=== PATIENT | female | born 1970 | race Caucasian/White ===

== ENCOUNTER 2022-04-10 18:29 | Emergency (ER) | payer MEDICAID ==
[~2022-04-10] VITALS: Ht 154.9 cm; Wt 41.7 kg
[~2022-04-10 18:29] MED LIST: ATI.5 PO; ESCI20TA49 PO; HYDR-4255 PO; LACO200T PO; PRO5 PO; SUCR1TAB56 PO; TOP100 PO
[2022-04-10 18:38] VITALS: BP 103/67
--- NOTE | 2022-04-10 19:25 | NUR ---
51 Y/O FEMALE, C/O GENERALIZED WEAKNESS SINCE THIS MORNING, STATING HER BP AT HOME WAS 77/32. BP IN TRIAGE 103/67, REPORTS SHE WAS D/C FROM ICU HERE ON SUNDAY FOR DEHYDRATION AND SEPSIS. REPORTS HX OF EPILEPSY, STATING SHE HAD ONE SEIZURE THIS MORNING. PMH: HTN, EPILEPSY, DEPRESSION, ANXIETY NKA
[2022-04-10] MEDS ORDERED: NACL 0.9% 1,000 ML IV ONE (20:05)
[2022-04-10] MEDS ORDERED: ACETAMINOPHEN EXTRA STRENGTH 500 MG TAB PO ONE (20:05)
--- NOTE | 2022-04-10 20:23 | NUR ---
CNC MILL SET UP OPERATOR AT BEDSIDE
[2022-04-10 20:38] LABS: BASOPHILS # (AUTO) 0.1 K/uL (0.00-0.22); BASOPHILS % (AUTO) 1.5 % (0.0-2.0); EOSINOPHILS # (AUTO) 0.2 K/uL (0-0.4); EOSINOPHILS % (AUTO) 3.7 % (0.0-4.0); HEMATOCRIT 30.3 % (36-48); HEMOGLOBIN 9.9 g/dL (12.0-16.0); LYMPHOCYTES # (AUTO) 2.8 K/uL (2.5-16.5); MEAN CORPUSCULAR HEMOGLOBIN 30 pg (27-31); MEAN CORPUSCULAR HGB CONC 33 g/dL (33-37); MEAN CORPUSCULAR VOLUME 89.8 fL (80-94); MONOCYTES # (AUTO) 0.3 K/uL (0.8-1.0); MONOCYTES % (AUTO) 5.5 % (1.7-9.3); NEUTROPHILS # (AUTO) 1.9 K/uL (1.8-7.7); NEUTROPHILS % (AUTO) 36.3 % (42.2-75.2); PLATELET COUNT (AUTO) 204 K/uL (140-450); RED BLOOD CELL COUNT(AUTO) 3.37 MIL/uL (4.20-5.40); RED CELL DISTRIBUTION WIDTH 13.4 % (11.6-13.7); WHITE BLOOD COUNT (AUTO) 5.3 K/uL (4.8-10.8)
[2022-04-10 21:10] LABS: ALBUMIN 3.9 g/dL (3.4-5.0); ANION GAP 14.5 (8-16); CARBON DIOXIDE 24.7 mmol/L (21-32); CREATININE 1.1 mg/dL (0.6-1.3); POTASSIUM 4.2 mmol/L (3.5-5.1); TOTAL BILIRUBIN 0.2 mg/dL (0.0-1.0)
[2022-04-10 23:09] VITALS: BP 107/66
--- NOTE | 2022-04-10 23:10 | NUR ---
Patient discharged with v/s stable. Written and verbal after care instructions given and explained. Patient verbalized understanding. Wheel Chair Assisted with to car. All questions addressed prior to discharge. Advised to follow up with PMD. vss, a/ox4, unlabored breathing, ambulatory, and calm demeanor.
== END 2022-04-10 23:10 | disposition home or self-care (01) ==
LOC: MED 18:29
DX: E86.0 Dehydration (principal); I95.9 Hypotension, unspecified; Z98.84 Bariatric surgery status
CPT/HCPCS: 36415; 80053; 83605; 85025; 96360; 99283; J7030

== ENCOUNTER 2022-04-12 17:43 | Inpatient (IN) | payer MEDICAID ==
[~2022-04-12] VITALS: Ht 154.9 cm; Wt 39.5 kg
--- NOTE | 2022-04-12 17:45 | NUR ---
LY ALS TO ER BED 6
[2022-04-12 17:47] VITALS: BP 107/62
--- NOTE | 2022-04-12 18:12 | NUR ---
S/W PATIENTS FRIEND RENA NAIK , STATED IF PATIENT D/C SHE WILL BE ABLE TO PROVIDE TRANSPORTATION HOME.
--- NOTE | 2022-04-12 18:23 | NUR ---
JOHN SWABED AND WALKED TO THE LAB.
[2022-04-12 18:40] LABS: BASOPHILS # (AUTO) 0.1 K/uL (0.00-0.22); EOSINOPHILS # (AUTO) 0.2 K/uL (0-0.4); EOSINOPHILS % (AUTO) 3.5 % (0.0-4.0); HEMATOCRIT 32.1 % (36-48); HEMOGLOBIN 10.4 g/dL (12.0-16.0); LYMPHOCYTES # (AUTO) 2.1 K/uL (2.5-16.5); LYMPHOCYTES % (AUTO) 46.8 % (20.5-51.1); MEAN CORPUSCULAR HEMOGLOBIN 29 pg (27-31); MEAN CORPUSCULAR HGB CONC 32 g/dL (33-37); MEAN CORPUSCULAR VOLUME 89.8 fL (80-94); MONOCYTES # (AUTO) 0.3 K/uL (0.8-1.0); MONOCYTES % (AUTO) 6.4 % (1.7-9.3); NEUTROPHILS # (AUTO) 1.9 K/uL (1.8-7.7); NEUTROPHILS % (AUTO) 41.3 % (42.2-75.2); PLATELET COUNT (AUTO) 240 K/uL (140-450); RED BLOOD CELL COUNT(AUTO) 3.57 MIL/uL (4.20-5.40); RED CELL DISTRIBUTION WIDTH 13.1 % (11.6-13.7); WHITE BLOOD COUNT (AUTO) 4.6 K/uL (4.8-10.8)
[2022-04-12 19:13] LABS: ALBUMIN 3.7 g/dL (3.4-5.0); ANION GAP 10.3 (8-16); CARBON DIOXIDE 22.3 mmol/L (21-32); CREATININE 0.9 mg/dL (0.6-1.3); MAGNESIUM 2.1 mg/dL (1.8-2.4); POTASSIUM 3.6 mmol/L (3.5-5.1); TOTAL BILIRUBIN 0.3 mg/dL (0.0-1.0)
--- NOTE | 2022-04-12 19:16 | NUR ---
URINE COLLECTED AND WALKED TO THE LAB.
--- NOTE | 2022-04-12 19:18 | NUR ---
GAVE REPORT TO MICHAEL FERRERA.
--- NOTE | 2022-04-12 19:30 | NUR ---
PATIENT RESTING IN BED. DOESNT APPEAR TO BE IN DISTRESS. RR APPEAR TO BE EVEN AND UNLABORED. ALL NEEDS MET.
--- NOTE | 2022-04-12 20:01 | NUR ---
Patient being evaluated by physician at bedside.
--- NOTE | 2022-04-12 20:30 | NUR ---
Patient being evaluated by physician at bedside.
--- NOTE | 2022-04-12 20:32 | NUR ---
SPOKE TO RENA TO GIVE UPDATE ON PATIENT STATUS.
[2022-04-12] MEDS ORDERED: NACL 0.9% 1,000 ML IV ONE (20:45)
[2022-04-12 20:54] LABS: BILIRUBIN,URINE NEGATIVE (NEGATIVE); BLOOD, URINE NEGATIVE (NEGATIVE); COLOR,URINE YELLOW (YELLOW); LEUKOCYTE ESTERASE ,URINE NEGATIVE (NEGATIVE); NITRITE, URINE NEGATIVE (NEGATIVE); UGLUCOSE NEGATIVE (NEGATIVE)
[2022-04-12 20:55] LABS: APPEARANCE,URINE CLEAR (CLEAR)
--- NOTE | 2022-04-12 22:00 | NUR ---
PATIENT AMBULATED TO THE AND BACK TO BED 6
[2022-04-12] MEDS ORDERED: POTASSIUM CHLORIDE 10 MEQ TABER PO PRN (22:10)
[2022-04-12] MEDS ORDERED: ONDANSETRON 4 MG/2 ML VIAL IM/IVP PRN (22:10)
[2022-04-12] MEDS ORDERED: HYDROcodone/APAP 5/325 MG 1 TAB TAB PO PRN (22:10)
[2022-04-12] MEDS ORDERED: MORPHINE SULFATE 2 MG/ML SYR IVP PRN (22:10)
[2022-04-12] MEDS ORDERED: MAGNESIUM OXIDE 400 MG TAB PO PRN (22:10)
[2022-04-12] MEDS ORDERED: DOCUSATE SODIUM 100 MG GELCAP PO PRN (22:10)
[2022-04-12] MEDS ORDERED: SODIUM PHOS / POTASSIUM PHOS 1 PKT PDR PO PRN (22:10)
[2022-04-12] MEDS: NACL 0.9% 1,000 ML IV SCH (22:33)
--- NOTE | 2022-04-12 23:00 | NUR ---
PT RQ FOOD AND BLANKETS
[2022-04-12 23:35] LABS: MAGNESIUM 1.9 mg/dL (1.8-2.4); PHOSPHORUS 2.9 mg/dL (2.5-4.9)
--- NOTE | 2022-04-13 00:31 | NUR ---
PATIENT RESTING IN BED WITH EYES CLOSED. BED LOW AND LOCKED. ISHMAEL SIDE RAILS UP FOR SAFETY. ALL NEEDS MET.
--- NOTE | 2022-04-13 01:05 | NUR ---
PATIENT AMBULATED TO THE RR
--- NOTE | 2022-04-13 01:06 | NUR ---
PATINET BM X1. AMBULATED BACK TO BED 6
--- NOTE | 2022-04-13 01:51 | NUR ---
PATIETN RQ MORE FOOD AND JUICE.
--- NOTE | 2022-04-13 04:14 | NUR ---
PATIENT RESTING IN BED WITH EYES CLOSED. DOESNT APPEAR TO BE IN DISTRESS. RR APPEAER TO BE EVEN AND UNLABORED. BED LOW AND LOCKED. ISHMAEL SIDE RAILS UP FOR SAFETY. ALL NEEDS MET.
--- NOTE | 2022-04-13 05:15 | NUR ---
PATIENT AMBULATED TO THE BEDSIDE COMODE. STEADY GAIT. ALL NEEDS MET
--- NOTE | 2022-04-13 06:35 | NUR ---
Esequiel norris in [facility] - 04/13/22 at 0708 by [facility] AT BEDSIDE
[2022-04-13 07:06] LABS: BASOPHILS # (AUTO) 0.1 K/uL (0.00-0.22); BASOPHILS % (AUTO) 1.8 % (0.0-2.0); EOSINOPHILS # (AUTO) 0.2 K/uL (0-0.4); EOSINOPHILS % (AUTO) 3.4 % (0.0-4.0); HEMATOCRIT 30.5 % (36-48); LYMPHOCYTES # (AUTO) 2.1 K/uL (2.5-16.5); LYMPHOCYTES % (AUTO) 44.8 % (20.5-51.1); MEAN CORPUSCULAR HEMOGLOBIN 30 pg (27-31); MEAN CORPUSCULAR HGB CONC 33 g/dL (33-37); MEAN CORPUSCULAR VOLUME 90.2 fL (80-94); MONOCYTES # (AUTO) 0.3 K/uL (0.8-1.0); MONOCYTES % (AUTO) 6.6 % (1.7-9.3); NEUTROPHILS # (AUTO) 2.1 K/uL (1.8-7.7); NEUTROPHILS % (AUTO) 43.4 % (42.2-75.2); PLATELET COUNT (AUTO) 197 K/uL (140-450); RED BLOOD CELL COUNT(AUTO) 3.38 MIL/uL (4.20-5.40); RED CELL DISTRIBUTION WIDTH 13.3 % (11.6-13.7); WHITE BLOOD COUNT (AUTO) 4.8 K/uL (4.8-10.8)
--- NOTE | 2022-04-13 07:21 | NUR ---
GAVE REPORT TO IBAN BARRETT. TRANSFER OF CARE
--- NOTE | 2022-04-13 07:21 | NUR ---
Report recieved from IBAN Jay at this time for transfer of care.
[2022-04-13] MEDS: MIDODRINE 5 MG TAB PO SCH ×3 (07:29→18:07)
[2022-04-13] MEDS ORDERED: HYDR25CA1 PO (07:35)
[2022-04-13] MEDS ORDERED: GABA300C PO (07:35)
--- NOTE | 2022-04-13 08:04 | NUR ---
Patient will be admitted to care of DR. MEJIA. Admited to TELEMETRY. Will go to room 126-B. Belongings list completed. Report to RONI JORDAN.
--- NOTE | 2022-04-13 08:10 | NUR ---
The patient's care was reviewed and supervised by Mel Delgado RN.
[2022-04-13 08:14] VITALS: BP 119/76
--- NOTE | 2022-04-13 08:15 | NUR ---
PT BROUGHT IN BY BAKARI FROM ED IN STABLE CONDITION. PT AMBULATED WITH ASSISTANCE TO BED. PT HAS A RIGHT AND LEFT AC 20 G, BOTH PATENT AND INTACT. IV FLUIDS RUNNING NS@75. VSS. SEIZURE PRECAUTIONS IMPLEMENTED. PT SKIN INTACT, LUNG SOUNDS CLEAR, S1S2, ON TELE MONITOR SHOWING SR, BOWEL SOUNDS HEARD, LAST BM REPORTED ON 04/12/22. EDUCATION PROVIDED ON HOSPITAL ENVIRONMENT. ALL QUESTIONS ANSWERED, ALL SAFETY MEASURES IN PLACE. CALL LIGHT WITHIN REACH. WILL CONTINUE TO MONITOR.
[2022-04-13] MEDS: SUCRALFATE 1 GM TAB PO SCH ×2 (08:44→15:56)
[2022-04-13] MEDS: ACETAMINOPHEN 325 MG TAB PO PRN (08:44)
[2022-04-13] MEDS: LACOSAMIDE 100 MG PO SCH ×2 (08:44→21:20)
[2022-04-13] MEDS: TOPIRAMATE 100 MG TAB PO SCH ×2 (08:45→21:22)
[2022-04-13] MEDS: PANTOPRAZOLE 40 MG TABEC PO SCH (08:45)
[2022-04-13] MEDS: ESCITALOPRAM 20 MG TAB PO SCH (08:45)
[2022-04-13 08:47] LABS: ANION GAP 11.9 (8-16); CARBON DIOXIDE 22.3 mmol/L (21-32); CREATININE 0.7 mg/dL (0.6-1.3); POTASSIUM 4.2 mmol/L (3.5-5.1)
[2022-04-13] MEDS ORDERED: LACOSAMIDE 100 MG PO SCH (09:00)
[2022-04-13] MEDS ORDERED: NON-FORMULARY ITEM (Lacosamide (Vimpat) 200 MG) PO SCH (09:00)
--- NOTE | 2022-04-13 09:04 | NUR ---
PATIENT HAS BEEN SCREENED AND CATEGORIZED HIGH NUTRITION RISK. PATIENT WILL BE SEEN WITHIN 1-2 DAYS OF ADMISSION. / [address]ON [address]
--- NOTE | 2022-04-13 10:00 | NUR ---
IRAM MEDICATION ADMINISTERED PER MD ORDER PT, TOLERATED ADMINISTRATION. ALL SAFETY MEASURES IN PLACE, CALL LIGHT WITHIN REACH. WILL CONTINUE TO MONITOR.
[2022-04-13] MEDS: NACL 0.9% 1,000 ML IV SCH (11:52)
[2022-04-13 12:00] VITALS: BP 104/63
--- NOTE | 2022-04-13 12:00 | NUR ---
IRAM MEDICATION ADMINISTERED PER MD ORDER, PT TOLERATED ADMINISTRATION.
[2022-04-13] MEDS: LORazepam 1 MG TAB PO PRN ×2 (12:51→22:36)
--- NOTE | 2022-04-13 14:00 | NUR ---
SON AT BEDSIDE, ALL QUESTIONS ANSWERED. PT STABLE IN BED WITH NO ACUTE S/S OF DISTRESS, ALL SAFETY MEASURES IN PLACE, CALL LIGHT WITHIN REACH. WILL CONTINUE TO MONITOR.
[2022-04-13] MEDS: DEXT 5% /NACL 0.9% 1,000 ML IV SCH ×2 (14:30→23:55)
[2022-04-13] MEDS: KETOROLAC 15 MG/ML VIAL IVP PRN (15:56)
[2022-04-13 16:00] VITALS: BP 115/57
--- NOTE | 2022-04-13 16:00 | NUR ---
DRUG SCREEN COLLECTED, LEFT AC REMOVED PER PT REQUEST, CATH IN PLACE. PT TOLERATED REMOVAL. NEW IV FLUIDS STARTED TO RIGHT AC 20G, PATENT AND INTACT. ALL SAFETY MEASURES IN PLACE, CALL LIGHT WITHIN REACH. WILL CONTINUE TO MONITOR.
--- NOTE | 2022-04-13 17:00 | NUR ---
IRAM MEDICATION ADMINISTERED PER MD ORDER, PT TOLERATED ADMINISTRATION. ALL SAFETY MEASURES IN PLACE, CALL LIGHT WITHIN REACH. WILL CONTINUE TO MONITOR.
--- NOTE | 2022-04-13 18:34 | NUR ---
PT REMAINED STABLE IN BED WITH ALL SAFETY MEASURES IN PLACE, CALL LIGHT WITHIN REACH. WILL ENDORSE TO HYDRAULIC PRESS IN OPERATOR NURSE.
--- NOTE | 2022-04-13 19:10 | NUR ---
RECEIVED REPORT FROM AM RONI JORDAN FOR CONTINUITY OF CARE. PT IS STABLE IN BED. A&OX4 DENIES PAIN. ON RM AIR/O2 WITH NOACUTE DISTRESS. RR EVEN AND UNLABORED WITH EQUAL CHEST RISE. GI INTACT. PT'S SKINIS INTACT. PT IS AMBULATORY AND CONTINENT. ALL SAFETY MEASURES IN PLACE . CALL LIGHT WITHIN REACH. WILL CONTINUE TO MONITOR.
[2022-04-13 20:00] VITALS: BP 128/69
[2022-04-13] MEDS: levETIRAcetam 500 MG TAB PO SCH (21:22)
--- NOTE | 2022-04-13 21:30 | NUR ---
HS MEDS GIVEN. AT 2230 PT C/O ANXIETY. ATIVAN 1 TABLET PO GIVEN. UP TO BATHROOM WITH STANDBY ASSIST. VOIDED. BACK TO BED. NAD. CALL LIGHT WITHIN REACH.
[2022-04-14] VITALS: BP 90/46
--- NOTE | 2022-04-14 | NUR ---
VSS: T-97.4, P-69, RR-18, BP-90/46 R ARM O2 SAT=98% ON ROOM AIR. AT 0145 PT C/O MESSER. RECEIVED TYLENOL 650MG PO WITH RELIEF AFTER 20 MINUTES. SLEEPING SOUNDLY RR EVEN AND UNLABORED. WILL CONTINUE WITH FREQ ROUNDS.
[2022-04-14] MEDS: ACETAMINOPHEN 325 MG TAB PO PRN (01:50)
[2022-04-14 04:00] VITALS: BP 80/54
[2022-04-14 05:58] LABS: BASOPHILS # (AUTO) 0.1 K/uL (0.00-0.22); BASOPHILS % (AUTO) 1.3 % (0.0-2.0); EOSINOPHILS # (AUTO) 0.3 K/uL (0-0.4); EOSINOPHILS % (AUTO) 4.3 % (0.0-4.0); HEMATOCRIT 30.6 % (36-48); HEMOGLOBIN 10.1 g/dL (12.0-16.0); LYMPHOCYTES # (AUTO) 3.2 K/uL (2.5-16.5); LYMPHOCYTES % (AUTO) 52.6 % (20.5-51.1); MEAN CORPUSCULAR HEMOGLOBIN 30 pg (27-31); MEAN CORPUSCULAR HGB CONC 33 g/dL (33-37); MONOCYTES # (AUTO) 0.4 K/uL (0.8-1.0); MONOCYTES % (AUTO) 6.9 % (1.7-9.3); NEUTROPHILS # (AUTO) 2.1 K/uL (1.8-7.7); NEUTROPHILS % (AUTO) 34.9 % (42.2-75.2); PLATELET COUNT (AUTO) 226 K/uL (140-450); RED CELL DISTRIBUTION WIDTH 13.2 % (11.6-13.7); WHITE BLOOD COUNT (AUTO) 6.1 K/uL (4.8-10.8)
[2022-04-14 06:14] LABS: ANION GAP 11.9 (8-16); CARBON DIOXIDE 24.2 mmol/L (21-32); CREATININE 0.9 mg/dL (0.6-1.3); POTASSIUM 4.1 mmol/L (3.5-5.1)
[2022-04-14] MEDS: SUCRALFATE 1 GM TAB PO SCH ×2 (06:26→17:44)
[2022-04-14] MEDS: MIDODRINE 5 MG TAB PO SCH ×3 (06:26→19:45)
--- NOTE | 2022-04-14 06:30 | NUR ---
AC BREAKFAST MEDS GIVEN. AMB WITH ASSIST TO BATHROOM VOIDED. GAIT SLIGHTLY UNSTEADY. DENIES PAIN, HEADACHE, OR DIZZINESS. CALL LIGHT WITHIN REACH. WILL CONTINUE TO MONITOR.
--- NOTE | 2022-04-14 07:30 | NUR ---
ENDORSED REPORT TO AM RONI WOODWARD. FOR CONTINUITY OF CARE. PT IS STABLE. ALL NEEDS MET THROUGHOUT THE SHIFT.
[2022-04-14 08:00] VITALS: BP 126/73
[2022-04-14] MEDS: PANTOPRAZOLE 40 MG TABEC PO SCH (08:46)
[2022-04-14] MEDS: levETIRAcetam 500 MG TAB PO SCH ×2 (08:46→20:46)
[2022-04-14] MEDS: TOPIRAMATE 100 MG TAB PO SCH ×2 (08:47→20:47)
[2022-04-14] MEDS: ESCITALOPRAM 20 MG TAB PO SCH (08:47)
[2022-04-14] MEDS: LACOSAMIDE 100 MG PO SCH ×2 (08:48→20:48)
[2022-04-14 08:49] LABS: BARBITURATE, URINE NEGATIVE ng/ml (NEG <=200); BENZODIAZEPINE, URINE POSITIVE ng/mL (NEG <=200); COCAINE, URINE NEGATIVE ng/mL (NEG <=300)
[2022-04-14 08:50] LABS: CANNABINOID, URINE NEGATIVE ng/mL (NEG <=50); OPIATE, URINE NEGATIVE ng/mL (NEG <=2000); PHENCYCLIDINE SCREEN,URINE NEGATIVE ng/mL (NEG <=25)
[2022-04-14] MEDS: DEXT 5% /NACL 0.9% 1,000 ML IV SCH ×2 (09:55→19:55)
--- NOTE | 2022-04-14 10:21 | NUR ---
PT STATED STILL FEELING ITCHY DESPITE GETTING BENADRYL AFTER TAKING THE MEDICATION MIDODRINE. NOTIFIED DR MEJIA, PER TO ORDER HYDROXYZINE 10MG PO ONCE. WILL CONTINUE WITH ORDERS.
[2022-04-14] MEDS ORDERED: HYDROXYZINE HYDROCHLORIDE 10 MG TAB PO SCH (10:30)
[2022-04-14 12:00] VITALS: BP 95/52
[2022-04-14] MEDS: LORazepam 1 MG TAB PO PRN (12:44)
--- NOTE | 2022-04-14 12:50 | NUR ---
PT STATED HAVING ANXIETY, MEDICATION ADMINISTERED, PT TOLERATED WELL, WILL CONTINUE TO MONITOR.
[2022-04-14] MEDS: PSYLLIUM 12.2 GM/PKT PO SCH (13:52)
--- NOTE | 2022-04-14 14:49 | NUR ---
04/14/22 RD INITIAL ASSESSMENT COMPLETED PLEASE REFER TO NUTRITION ASSESSMENT UNDER CARE ACTIVITY FOR ESTIMATED NUTRITIONAL NEEDS. 1. CONTINUE REGULAR DIET TOLERATED -RECOMMEND HIGH CALORIE/HIGH PROTEIN FOODS, NUTRITION EDUCATION HANDOUT PROVIDED 2. RECOMMEND ENSURE BID FOR NUTRITION SUPPORT 3. RD TO FOLLOW-UP 3-5 DAYS, MODERATE RISK CHON DANIEL RD
[2022-04-14 16:00] VITALS: BP 98/55
--- NOTE | 2022-04-14 19:30 | NUR ---
ENDORSED PT TO [facility]OC AADC OPERATIONS STAFF OFFICER NURSE FOR CONTINUOUS OF CARE
--- NOTE | 2022-04-14 19:31 | NUR ---
RECEIVED ENDORSEMENT FROM DAY SHIFT NURSE FOR CONTINUITY OF PT CARE. PT IS AWAKE, ALERT AND VERBALLY RESPONSIVE. PT IS FULL CODE, NOT KNOWN ALLERGY. RESPIRATION EVEN, NO SOB OR DISTRESS. SKIN COLOR IS NORMAL. SKIN INTACT AND PATENT. PT IS ON REGULAR DIET. IV SITE ON RIGHT FOREARM WITH 22G INTACT AND PATENT, IV FLUID NORMAL SALINE IS INFUSING WELL AT 100 ML/HR. NO REDNESS/RASHES OR SIGN/SYMPTOM OF INFECTION ON SKIN SURROUNDING IV SITE. PT DENIED OF PAIN/DISCOMFORT, HEADACHE OR DIZZINESS. PT HAS POOR APPETITE. SHE 15% THIS DINNER.
[2022-04-14 20:00] VITALS: BP 93/58
--- NOTE | 2022-04-14 21:15 | NUR ---
PT TAKES ALL HER EVENING MEDS WELL, NO ALLERGY OR SIDE REACTION.
--- NOTE | 2022-04-14 22:15 | NUR ---
PT IS SLEEPING, NO FACIAL GRIMACING.
[2022-04-15] VITALS: BP 91/46
--- NOTE | 2022-04-15 02:00 | NUR ---
PT ASLEEP, NO FACIAL GRIMACING.
[2022-04-15 04:00] VITALS: BP 99/45
[2022-04-15 06:28] LABS: BASOPHILS # (AUTO) 0.1 K/uL (0.00-0.22); BASOPHILS % (AUTO) 1.4 % (0.0-2.0); EOSINOPHILS # (AUTO) 0.3 K/uL (0-0.4); EOSINOPHILS % (AUTO) 4.4 % (0.0-4.0); HEMATOCRIT 30.3 % (36-48); LYMPHOCYTES # (AUTO) 2.9 K/uL (2.5-16.5); LYMPHOCYTES % (AUTO) 50.2 % (20.5-51.1); MEAN CORPUSCULAR HEMOGLOBIN 29 pg (27-31); MEAN CORPUSCULAR HGB CONC 33 g/dL (33-37); MEAN CORPUSCULAR VOLUME 88.9 fL (80-94); MONOCYTES # (AUTO) 0.4 K/uL (0.8-1.0); MONOCYTES % (AUTO) 6.3 % (1.7-9.3); NEUTROPHILS # (AUTO) 2.2 K/uL (1.8-7.7); NEUTROPHILS % (AUTO) 37.7 % (42.2-75.2); PLATELET COUNT (AUTO) 249 K/uL (140-450); RED CELL DISTRIBUTION WIDTH 13.4 % (11.6-13.7); WHITE BLOOD COUNT (AUTO) 5.8 K/uL (4.8-10.8)
[2022-04-15] MEDS: DEXT 5% /NACL 0.9% 1,000 ML IV SCH ×2 (06:29→16:10)
[2022-04-15 06:54] LABS: ANION GAP 11.3 (8-16); CARBON DIOXIDE 24.8 mmol/L (21-32); CREATININE 0.7 mg/dL (0.6-1.3); POTASSIUM 4.1 mmol/L (3.5-5.1)
--- NOTE | 2022-04-15 07:25 | NUR ---
ENDORSED TO DAY SHIFT NURSE FOR CONTINUITY OF PT CARE. PT IS ON STABLE CONDITION.
--- NOTE | 2022-04-15 07:30 | NUR ---
RECEIVED BEDSIDE REPORT FROM SENIOR RADIATION THERAPIST NURSE FOR CONTINUOUS OF CARE, PT AWAKE ALERT ABLE TO LET NEEDS KNOWN, IV TO RIGHT AC 22G PATENT INTACT INFUSING WELL. PT ON ROOM AIR, NO SOB NOTED, INITIAL ASSESSMENT DONE, ALL SAFETY PRECAUTION MET, CALL LIGHT WITHIN REACH, WILL CONTINUE TO MONITOR.
[2022-04-15] MEDS: MIDODRINE 5 MG TAB PO SCH ×3 (07:45→21:34)
[2022-04-15] MEDS: SUCRALFATE 1 GM TAB PO SCH ×2 (07:46→16:36)
[2022-04-15 08:00] VITALS: BP 128/71
[2022-04-15] MEDS: PANTOPRAZOLE 40 MG TABEC PO SCH (09:22)
[2022-04-15] MEDS: ESCITALOPRAM 20 MG TAB PO SCH (09:22)
[2022-04-15] MEDS: levETIRAcetam 500 MG TAB PO SCH ×2 (09:23→21:33)
[2022-04-15] MEDS: TOPIRAMATE 100 MG TAB PO SCH ×2 (09:23→21:34)
[2022-04-15] MEDS: FLUDROCORTISONE 0.1 MG TAB PO SCH (09:23)
[2022-04-15] MEDS: PSYLLIUM 12.2 GM/PKT PO SCH (09:24)
[2022-04-15] MEDS: LACOSAMIDE 100 MG PO SCH ×2 (09:26→21:36)
[2022-04-15 12:00] VITALS: BP 99/63
[2022-04-15] MEDS: KETOROLAC 15 MG/ML VIAL IVP PRN ×2 (13:26→21:37)
[2022-04-15] MEDS: LORazepam 1 MG TAB PO PRN ×2 (13:59→23:37)
[2022-04-15 16:00] VITALS: BP 116/69
--- NOTE | 2022-04-15 19:30 | NUR ---
ENDORSED PT TO [employer] PERSON NURSE FOR CONTINUOUS OF CARE.
--- NOTE | 2022-04-15 19:31 | NUR ---
RECEIVED ENDORSEMENT FROM DAY SHIFT NURSETRACE FOR CONTINUITY OF PT CARE. PT IS STABLE, AWAKE, ALERT AND VERBALLY RESPONSIVE. PT IS FULL CODE, NOT KNOWN ALLERGY. RESPIRATION EVEN, NO SOB OR DISTRESS. SKIN COLOR IS NORMAL. SKIN INTACT AND PATENT. PT IS ON REGULAR DIET, SHE CONSUMED 80% OF FOOD PREPARED AND ASKED FOR ADDITIONAL SANDWICH AND CHOCOLATE PUDDING. IV SITE ON RIGHT FOREARM WITH 22G INTACT AND PATENT, IV FLUID NORMAL SALINE IS INFUSING WELL AT 100 ML/HR. NO REDNESS/RASHES OR SIGN/SYMPTOM OF INFECTION ON SKIN SURROUNDING IV SITE. PT DENIED OF PAIN/DISCOMFORT, HEADACHE OR DIZZINESS. PT AMBULATES TO RESTROOM INDEPENDENTLY.
[2022-04-15 20:00] VITALS: BP 90/50
--- NOTE | 2022-04-15 21:37 | NUR ---
PT COMPLAINTS OF HEADACHE, HEADACHE MEDICATION TORADOL ADMINISTERED ORDERED.
--- NOTE | 2022-04-15 22:37 | NUR ---
REASSESSMENT OF HEADACHE, PT VERBALIZED OF TORADOL IS EFFECTIVE, HEADACHE REDUCED TO 2/10. PT FEELS COMFORTABLE.
[2022-04-16] VITALS: BP 129/73
--- NOTE | 2022-04-16 00:15 | NUR ---
PT IS ASLEEP, NO FACIAL GRIMACING.
--- NOTE | 2022-04-16 02:00 | NUR ---
PT ON BED SLEEPING WELL. NO DISCOMFORT, NO FACIAL GRIMACING. IV FLUID IS INFUSING WELL.
[2022-04-16] MEDS: DEXT 5% /NACL 0.9% 1,000 ML IV SCH ×2 (02:02→11:57)
[2022-04-16 04:00] VITALS: BP 102/63
--- NOTE | 2022-04-16 04:00 | NUR ---
PT AWAKEN FOR VITAL SIGNS CHECK. PT DENIED OF ANY APIN OR DISCOMFORT. NO HEADACHE OR DIZZINESS.
[2022-04-16] MEDS: MIDODRINE 5 MG TAB PO SCH ×3 (05:00→21:39)
[2022-04-16 05:49] LABS: BASOPHILS # (AUTO) 0.1 K/uL (0.00-0.22); BASOPHILS % (AUTO) 1.3 % (0.0-2.0); EOSINOPHILS # (AUTO) 0.2 K/uL (0-0.4); EOSINOPHILS % (AUTO) 3.9 % (0.0-4.0); HEMATOCRIT 28.1 % (36-48); HEMOGLOBIN 9.2 g/dL (12.0-16.0); LYMPHOCYTES # (AUTO) 3.3 K/uL (2.5-16.5); LYMPHOCYTES % (AUTO) 52.9 % (20.5-51.1); MEAN CORPUSCULAR HEMOGLOBIN 29 pg (27-31); MEAN CORPUSCULAR HGB CONC 33 g/dL (33-37); MEAN CORPUSCULAR VOLUME 89.3 fL (80-94); MONOCYTES # (AUTO) 0.4 K/uL (0.8-1.0); MONOCYTES % (AUTO) 6.4 % (1.7-9.3); NEUTROPHILS # (AUTO) 2.2 K/uL (1.8-7.7); NEUTROPHILS % (AUTO) 35.5 % (42.2-75.2); PLATELET COUNT (AUTO) 228 K/uL (140-450); RED BLOOD CELL COUNT(AUTO) 3.15 MIL/uL (4.20-5.40); RED CELL DISTRIBUTION WIDTH 13.1 % (11.6-13.7); WHITE BLOOD COUNT (AUTO) 6.2 K/uL (4.8-10.8)
[2022-04-16] MEDS: SUCRALFATE 1 GM TAB PO SCH ×2 (06:37→15:45)
--- NOTE | 2022-04-16 07:25 | NUR ---
ENDORSED PATIENT TO DAY SHIFT NURSE FOR CONTINUITY OF PT CARE. PT IS ON STABLE CONDITION.
--- NOTE | 2022-04-16 07:30 | NUR ---
RECEIVED REPORT FROM PRINTER SLOTTER FEEDER NURSE. NO S/S OF DISTRESS. CALL LIGHT IN REACH ALL SAFETY MEASURES IN PLACE.
[2022-04-16 07:32] LABS: ANION GAP 9.8 (8-16); CARBON DIOXIDE 25.9 mmol/L (21-32); CREATININE 0.9 mg/dL (0.6-1.3); POTASSIUM 3.7 mmol/L (3.5-5.1)
[2022-04-16 08:00] VITALS: BP 137/78
[2022-04-16] MEDS: ESCITALOPRAM 20 MG TAB PO SCH (09:08)
[2022-04-16] MEDS: TOPIRAMATE 100 MG TAB PO SCH ×2 (09:08→21:40)
[2022-04-16] MEDS: PSYLLIUM 12.2 GM/PKT PO SCH (09:08)
[2022-04-16] MEDS: levETIRAcetam 500 MG TAB PO SCH ×2 (09:08→21:39)
[2022-04-16] MEDS: PANTOPRAZOLE 40 MG TABEC PO SCH (09:08)
[2022-04-16] MEDS: FLUDROCORTISONE 0.1 MG TAB PO SCH (09:08)
[2022-04-16] MEDS: SENNA 8.6 MG TAB PO SCH (09:08)
--- NOTE | 2022-04-16 09:10 | NUR ---
SPOKE TO PHARMACY TO OBTAIN PT MEDICATION. PHARMACY TO BRING OR ADVISE NURSE OF LOCATION ONCE ACQUIRED.
[2022-04-16] MEDS: LACOSAMIDE 100 MG PO SCH ×2 (09:30→21:42)
--- NOTE | 2022-04-16 11:48 | NUR ---
PT STATED ITCHING REACTION WHEN MIDODRINE IS ADMINISTERED AND HAS BEEN RECEIVING BENADRYL WITH MEDICATION. BENADRYL ADMINISTERED PRIOR TO MIDODRINE ADMINISTRATION INCREASE EFFECTIVENESS OF MEDICATION. WILL CONTINUE TO MONITOR FOR REACTIONS. CALL LIGHT IN REACH. ALL SAFETY MEASURES IN PLACE
[2022-04-16 12:00] VITALS: BP 104/63
--- NOTE | 2022-04-16 12:37 | NUR ---
PT STATED "IM FEELING ANXIOUS" AND REQUESTED ATIVAN FOR HER ANXIETY. WILL ADMINISTER AND CONTINUE TO MONITOR PT.
--- NOTE | 2022-04-16 13:07 | NUR ---
AFTER ADMINISTERING MIDODRINE. PT WAS ASKED ABOUT PREVIOUS SEIZURE HISTORY. WHILE DISCUSSING PT'S LAST SEIZURE PT STOPPED SPEAKING AND SEIZURE ACTIVITY BEGAN AT 1244. SEIZURE ENDED APPROXIMATELY 45 SECONDS AFTER. PT WAS PLACE ON 02 MASK AT 6L. PT WAS ABLE TO RESPOND WITH NODS AT 1246, AND NAME AT 1247. NOTIFIED DR. MEJIA, DR. GATES, AND DR. TEIXEIRA. DR. MEJIA ORDERED KEPPRA TO BE INCREASED TO 1500 BID AND EEG. PT IS STABLE. VITALS WNL. WILL CONTINUE TO MONITOR
--- NOTE | 2022-04-16 13:59 | NUR ---
PT SITTING UP AND EATING LUNCH. DISCUSSED SEIZURE ACTIVITY. PT A&OX4, NO SLURRED SPEECH. PERRLA. NO S/S OF DISTRESS. INFORMED PT OF NEW ORDERS AND POC
[2022-04-16] MEDS: DEXT 5% / NACL 0.45% 1,000 ML IV SCH (15:45)
[2022-04-16 16:00] VITALS: BP 101/56
--- NOTE | 2022-04-16 17:30 | NUR ---
INFORMED PT THAT PHYSICAL THERAPY ORDER WAS OBTAINED AND EVAL WILL NOT TAKE PLACE UNTIL TOMORROW. PER MD, PT MUST BE 24HRS SEIZURE FREE TO DC. PT VERBALIZED UNDERSTANDING
--- NOTE | 2022-04-16 19:04 | NUR ---
ENDORSED PT TO VP CORPORATE DEVELOPMENT NURSE. NO S/S OF DISTRESS. CALL LIGHT IN REACH. ALL SAFETY MEASURES IN PLACE
--- NOTE | 2022-04-16 19:05 | NUR ---
RECEIVED ENDORSEMENT FROM DAY SHIFT NURSE. PT IS ON BED, AWAKE, ALERT AND VERBALIZED NEEDS. IV FLUID IS INFUSING WELL AT 100 ML/HR. PT STATED SHE SHOULD BE HOME ALREADY IF SHE DOES NOT HAVE SEIZURE TODAY. PT STATED AND UNDERSTOOD THAT IF SHE DOES NOT HAVE SEIZURE FOR THE NEXT 24 HRS, SHE COULD BE HOME. CONTINUE TO MONITOR.
[2022-04-16 20:00] VITALS: BP 95/54
--- NOTE | 2022-04-16 23:10 | NUR ---
ASSISTED PT AFTER USING RESTROOM TO AMBULATES TO HER BED, PT IS WITH MODERATE SLIGHT SHORT OF BREATH, WHEN MOVES TO QUICK. PT DENIES OF HEADACHE, PAIN OR DISCOMFORT. IV FLUID IS INFUSING WELL.
[2022-04-16] MEDS: LORazepam 1 MG TAB PO PRN (23:16)
[2022-04-17] VITALS: BP 95/54
[2022-04-17] MEDS: DEXT 5% / NACL 0.45% 1,000 ML IV SCH ×2 (01:34→11:25)
--- NOTE | 2022-04-17 02:00 | NUR ---
PT IS ASLEEP, NO SOB OR DISTRESS.
[2022-04-17 04:00] VITALS: BP 93/54
[2022-04-17] MEDS: MIDODRINE 5 MG TAB PO SCH ×2 (05:55→12:05)
[2022-04-17 06:02] LABS: BASOPHILS # (AUTO) 0.1 K/uL (0.00-0.22); BASOPHILS % (AUTO) 1.7 % (0.0-2.0); EOSINOPHILS # (AUTO) 0.2 K/uL (0-0.4); EOSINOPHILS % (AUTO) 3.3 % (0.0-4.0); HEMATOCRIT 27.7 % (36-48); HEMOGLOBIN 9.1 g/dL (12.0-16.0); LYMPHOCYTES # (AUTO) 2.9 K/uL (2.5-16.5); LYMPHOCYTES % (AUTO) 46.1 % (20.5-51.1); MEAN CORPUSCULAR HEMOGLOBIN 29 pg (27-31); MEAN CORPUSCULAR HGB CONC 33 g/dL (33-37); MONOCYTES # (AUTO) 0.4 K/uL (0.8-1.0); MONOCYTES % (AUTO) 5.7 % (1.7-9.3); NEUTROPHILS # (AUTO) 2.7 K/uL (1.8-7.7); NEUTROPHILS % (AUTO) 43.2 % (42.2-75.2); PLATELET COUNT (AUTO) 223 K/uL (140-450); RED BLOOD CELL COUNT(AUTO) 3.11 MIL/uL (4.20-5.40); RED CELL DISTRIBUTION WIDTH 13.4 % (11.6-13.7); WHITE BLOOD COUNT (AUTO) 6.2 K/uL (4.8-10.8)
[2022-04-17 06:17] LABS: ANION GAP 9.5 (8-16); CARBON DIOXIDE 26.1 mmol/L (21-32); CREATININE 0.8 mg/dL (0.6-1.3); POTASSIUM 3.6 mmol/L (3.5-5.1)
[2022-04-17] MEDS: SUCRALFATE 1 GM TAB PO SCH (07:08)
--- NOTE | 2022-04-17 07:16 | NUR ---
NO SEIZURE OCCURRENCE THIS SHIFT. PT IS ON STABLE CONDITION, DENIES OF PAIN OR DISCOMFORT, NO HEADACHE OR DIZZINESS. ENDORSED TO DAY SHIFT NURSE FOR CONTINUITY OF PT CARE.
[2022-04-17 08:00] VITALS: BP 120/76
--- NOTE | 2022-04-17 08:00 | NUR ---
RECEIVED REPORT FROM CALCULATING MACHINE OPERATOR FOR CONTINUITY OF CARE.PATIENT ALERT AWAKE ORIENTED X4, NOT IN ANY DISTRESS NOTED. DENIES PAIN AT THIS TIME. WITH IVF ON GOING AND INFUSING WELL. ON AIRPORT DUTY MANAGER SHOWS SB. NO SEIZURE DURING CALCULATING MACHINE OPERATOR AND THIS MORNING. WILL CONTINUE TO MONITOR. NEEDS ATTENDED. WAITING FOR MD TO DO ROUNDS, PATIENT IS EAGER TO GO HOME.
[2022-04-17] MEDS: levETIRAcetam 500 MG TAB PO SCH (08:58)
[2022-04-17] MEDS: TOPIRAMATE 100 MG TAB PO SCH (08:58)
[2022-04-17] MEDS: SENNA 8.6 MG TAB PO SCH (08:59)
[2022-04-17] MEDS: PANTOPRAZOLE 40 MG TABEC PO SCH (08:59)
[2022-04-17] MEDS: ESCITALOPRAM 20 MG TAB PO SCH (08:59)
[2022-04-17] MEDS: PSYLLIUM 12.2 GM/PKT PO SCH (09:00)
--- NOTE | 2022-04-17 09:00 | NUR ---
DUE MEDICATIONS GIVEN AND TOLERATED WELL.
[2022-04-17] MEDS: LACOSAMIDE 100 MG PO SCH (09:01)
[2022-04-17] MEDS: FLUDROCORTISONE 0.1 MG TAB PO SCH (09:02)
[2022-04-17] MEDS ORDERED: LACO200T PO (11:34)
[2022-04-17] MEDS ORDERED: FLO.1 PO (11:34)
[2022-04-17] MEDS ORDERED: SUCR1TAB56 PO (11:34)
[2022-04-17] MEDS ORDERED: ESCI20TA49 PO (11:34)
[2022-04-17] MEDS ORDERED: LEVE750T25 PO (11:34)
[2022-04-17] MEDS ORDERED: TOP100 PO (11:34)
[2022-04-17 12:00] VITALS: BP 94/54
--- NOTE | 2022-04-17 13:00 | NUR ---
SEEN BY DR. CANO WITH DC ORDER.
--- NOTE | 2022-04-17 13:45 | NUR ---
DC PATIENT TO HOME VIA WHEELCHAIR WITH DC INSTRUCTION GIVEN AND VERBALIZED UNDERSTANDING. IN STABLE CONDITION.
--- NOTE | 2022-04-17 13:46 | NUR ---
NO SEIZURE NOTED DURING THE SHIFT. IN STABLE CONDITION.
== END 2022-04-17 13:45 | disposition home or self-care (01) | DRG 53 ==
LOC: MED 17:43 → MTU 20:45 → MMU 04-13 06:50
PROVIDERS: ADMIT Hospitalist; ATTEND Hospitalist
PROC: 4A10X4Z Monitoring of Central Nervous Electrical Activity, External Approach (ICD-10-PCS; principal; 2022-04-17)
DX: G40.909 Epilepsy, unspecified, not intractable, without status epilepticus (principal); I95.9 Hypotension, unspecified; D63.8 Anemia in other chronic diseases classified elsewhere; K91.1 Postgastric surgery syndromes; R62.7 Adult failure to thrive; E86.0 Dehydration; Y83.8 Other surgical procedures as the cause of abnormal reaction of the patient, or of later complication, without mention of misadventure at the time of the procedure; Y82.8 Other medical devices associated with adverse incidents; Z20.822 Contact with and (suspected) exposure to COVID-19; Z68.1 Body mass index [BMI] 19.9 or less, adult; Y92.89 Other specified places as the place of occurrence of the external cause
CPT/HCPCS: 36415; 80048; 80053; 80305; 81003; 82948; 83605; 83735; 84100; 84484; 85025; 87040; 87081; 93005; 96360; 99291; 99292; J1885; J7030; Q0163

== ENCOUNTER 2022-06-13 13:33 | Emergency (ER) | payer MEDICAID ==
[~2022-06-13] VITALS: Ht 154.9 cm; Wt 45.4 kg
[~2022-06-13 13:33] MED LIST changes: +FLO.1 PO; +GABA300C PO; -HYDR-4255 PO; +IBUP-1842 PO; +LEVE750T25 PO; +TPN IV
[2022-06-13 13:50] VITALS: BP 87/54
--- NOTE | 2022-06-13 14:45 | NUR ---
51/F PRESENTS TO ED REQUESTING RIGHT ARM PICC LINE BE REMOVED. STATES IT WAS INITIALLY PLACED FOR TPN ADMINISTRATION BUT D/T INSURANCE REASONS HER SERVICE WAS CANCELED. PATIENT DENIES PAIN OR RECENT FEVERS/CHILLS, STATING SHE WANTS IT REMOVED TO PREVENT INFECTION, DENIES ANY OTHER MEDICAL COMPLAINTS.
[2022-06-13 14:51] VITALS: BP 87/54
--- NOTE | 2022-06-13 14:51 | NUR ---
Patient discharged with v/s stable. Written and verbal after care instructions given and explained. Patient verbalized understanding. Ambulatory with steady gait. All questions addressed prior to discharge. Advised to follow up with PMD. PROVIDED WITH [facility]
== END 2022-06-13 14:51 | disposition home or self-care (01) ==
LOC: MED 13:33
DX: Z45.2 Encounter for adjustment and management of vascular access device (principal)
CPT/HCPCS: 99281

== ENCOUNTER 2022-06-21 17:35 | Emergency (ER) | payer MEDICAID ==
[~2022-06-21] VITALS: Ht 154.9 cm; Wt 45.8 kg
[2022-06-21 17:43] VITALS: BP 99/57
--- NOTE | 2022-06-21 19:00 | NUR ---
Dr. Melgoza examining patient.
--- NOTE | 2022-06-21 19:02 | NUR ---
Per reported, Dr. Melgoza removed PICC line.
[2022-06-21 19:17] VITALS: BP 102/57
--- NOTE | 2022-06-21 19:17 | NUR ---
Patient discharged with v/s stable. Written and verbal after care instructions given and explained. Patient verbalized understanding. Ambulatory with steady gait. All questions addressed prior to discharge. Advised to follow up with PMD.
== END 2022-06-21 19:17 | disposition home or self-care (01) ==
LOC: MED 17:35
DX: Z45.2 Encounter for adjustment and management of vascular access device (principal)
CPT/HCPCS: 99281